=== PATIENT | female | born 1935 | race African-American/Black ===

== ENCOUNTER 2017-07-10 07:04 | Emergency (ER) | payer SELFPAY ==
[~2017-07-10] VITALS: Ht 175.3 cm; Wt 84.9 kg
[2017-07-10 07:57] LABS: BASOPHIL (%) 0.2 % (0-1); EOSINOPHIL (%) 0 % (0-5); HEMATOCRIT 42.8 % (36.0-46.0); HEMOGLOBIN 14.4 G/DL (11.9-15.5); IMMATURE GRANULOCYTE (%) 0.3 % (0.0-0.7); LYMPHOCYTE (%) 30.1 % (15-42); LYMPHOCYTE COUNT 1.8 K/uL (1.0-2.8); MCH 30.4 PG (29.0-34.0); MCHC 33.6 G/DL (30.0-36.0); MCV 90.3 FL (83-99); MONOCYTE (%) 3.9 % (3-12); MONOCYTE COUNT 0.2 K/uL (0-0.8); NEUTROPHIL (%) 65.5 % (45-76); PLATELET COUNT 185 K/uL (156-360); RBC DIS.WIDTH-CV 13.2 % (11.8-14.6); RBC DIS.WIDTH-SD 43.7 % (39-53); RED BLOOD COUNT 4.74 M/uL (3.80-5.20); WHITE BLOOD COUNT 6.1 K/uL (4.1-10.2)
[2017-07-10 08:08] LABS: PTT 26.2 SEC (25-37)
[2017-07-10 08:27] LABS: ALBUMIN 4.2 G/DL (3.2-4.8); ALKALINE PHOSPHATASE 53 IU/L (3-129); ALT (GPT) 14 IU/L (3-49); AST (GOT) 14 IU/L (2-34); CHLORIDE 100 MEQ/L (99-109); CREATININE 0.9 MG/DL (0.6-1.3); GFR ESTIMATE (CALCULATED) > 59 mL/min/; GLUCOSE 265 mg/dL (70-99); MAGNESIUM 1.9 mg/dl (1.3-2.7); POTASSIUM 3.8 MEQ/L (3.7-5.4); SODIUM 135 MEQ/L (136-147); TOTAL BILIRUBIN 0.4 MG/DL (0.0-1.0); TOTAL PROTEIN 8.4 G/DL (6.4-8.3); TROP-I INTERPRETATION NEGATIVE; TROPONIN-I 0.01 ng/mL (0.0-0.30); UREA NITROGEN (BUN) 14 mg/dL (9-23)
[2017-07-10] MEDS ORDERED: ANTIVERT25 MG PO (11:39)
[2017-07-10] MEDS ORDERED: NORVASC10 MG PO (11:39)
[2017-07-10] MEDS ORDERED: COZAAR50 MG PO (11:39)
[2017-07-10 11:56] VITALS: BP 149/85
== END 2017-07-10 11:55 | disposition home or self-care (01) ==
LOC: EDBD 07:04 → EME 07:04
PROVIDERS: Emergency Medicine
DX: R42 Dizziness and giddiness (principal); I16.1 Hypertensive emergency
CPT/HCPCS: 70450; 70551; 80053; 83735; 84484; 85025; 85610; 85730; 93005; 99281; 99285; J2405